=== PATIENT | male | born 1970 | race Caucasian/White ===

== ENCOUNTER → 2016-10-10 | Outpatient (CLI) | payer OTHER ==
[~2016-10-10] VITALS: Ht 172.7 cm; Wt 118.8 kg
[~2016-10-10] MED LIST: ADVIL,NUPRIN,M200 MG PO; ALEVE220 MG PO; CELECOXIB200 MG PO; ENDOCET 5-3251 EACH PO; FERROUS SULFAT325 MG PO; LISINOPRIL40 MG PO; LOVENOX40 MG/0.4 SC; OXYCONTIN10 MG PO; PERCOCET 5/31 TABLET PO; PRAVASTATIN SOD10 MG PO; PRILOSEC20 MG PO; SENNA PLUS TAB1 EACH PO; TIZANIDINE HCL4 M1 PO; VENTOLIN HFA18 GM IH
== END | disposition home or self-care (01) ==
LOC: AMB 10:56
PROC: 0DBE8ZX Excision of Large Intestine, Via Natural or Artificial Opening Endoscopic, Diagnostic (ICD-10-PCS; principal; 2016-10-10)
DX: K62.5 Hemorrhage of anus and rectum (principal); K64.8 Other hemorrhoids; A09 Infectious gastroenteritis and colitis, unspecified; K21.9 Gastro-esophageal reflux disease without esophagitis; I10 Essential (primary) hypertension; E78.00 Pure hypercholesterolemia, unspecified; Z82.49 Family history of ischemic heart disease and other diseases of the circulatory system; Z82.3 Family history of stroke
CPT/HCPCS: 88305

== ENCOUNTER 2016-12-14 17:04 | Emergency (ER) | payer OTHER ==
[~2016-12-14] VITALS: Ht 175.3 cm; Wt 120.7 kg
[2016-12-14 17:48] LABS: HEMATOCRIT 44.6 % (38.0-50.0); MCH 32.2 PG (29.0-34.0); MCHC 34.1 G/DL (30.0-36.0); MCV 94.5 FL (86-99); MEAN PLAT.VOLUME 11.2 uM^3 (9.0-12.4); PLATELET COUNT 250 K/uL (156-360); RBC DIS.WIDTH-CV 12.1 % (11.8-14.6); RBC DIS.WIDTH-SD 42.3 % (39-53); RED BLOOD COUNT 4.72 M/uL (4.00-5.50); WHITE BLOOD COUNT 11.7 K/uL (4.1-10.2)
[2016-12-14 17:58] LABS: CHLORIDE 101 mEq/L (99-109); POTASSIUM 3.9 mEq/L (3.7-5.4); SODIUM 135 mEq/L (136-147)
[2016-12-14 17:59] LABS: GLUCOSE 85 mg/dL (70-99)
[2016-12-14 18:01] LABS: ANION GAP 10 MEQ/L (2-14)
[2016-12-14 18:03] LABS: GFR ESTIMATE (CALCULATED) > 59 mL/min/
[2016-12-14 18:04] LABS: UREA NITROGEN (BUN) 35 mg/dL (9-23)
[2016-12-14 18:06] LABS: CREATINE KINASE 359 IU/L (1-294)
[2016-12-14 18:09] LABS: TROP-I INTERPRETATION NEGATIVE; TROPONIN-I < 0.01 ng/mL (0.0-0.30)
[2016-12-14 18:32] LABS: ADD MIUA? NO; BILIRUBIN NEGATIVE; BLOOD NEGATIVE; COLOR YELLOW ((YELLOW)); GLUCOSE (STRIP) NEGATIVE; KETONES NEGATIVE; LEUKOCYTES NEGATIVE; NITRITE NEGATIVE; PROTEIN (STRIP) NEGATIVE; SPECIFIC GRAVITY 1.018 (1.000-1.030); UROBILINOGEN 0.2 MG/DL (0.2-1.0)
[2016-12-14 18:43] LABS: TOTAL BILIRUBIN 0.4 mg/dL (0.0-1.0)
[2016-12-14 18:44] LABS: ALKALINE PHOSPHATASE 62 IU/L (3-129)
[2016-12-14 18:46] LABS: DIRECT BILIRUBIN 0.1 mg/dL (0.0-0.3)
[2016-12-14 20:26] VITALS: BP 110/68
[2016-12-15 12:14] LABS: LYME DISEASE SEROLOGY SCREEN NEGATIVE (NEGATIVE)
== END 2016-12-14 20:29 | disposition home or self-care (01) ==
LOC: EME 17:04
PROVIDERS: Physician Assistant
DX: M79.1 Myalgia (principal); R53.83 Other fatigue; R79.89 Other specified abnormal findings of blood chemistry; R06.09 Other forms of dyspnea; I10 Essential (primary) hypertension; K21.9 Gastro-esophageal reflux disease without esophagitis; F32.9 Major depressive disorder, single episode, unspecified; Z82.3 Family history of stroke
CPT/HCPCS: 71020; 80048; 80076; 81003; 82550; 84484; 85027; 86618; 93005; 99281; 99284

== ENCOUNTER 2017-07-30 00:27 | Emergency (ER) | payer OTHER ==
[~2017-07-30] VITALS: Ht 175.3 cm; Wt 118.0 kg
[2017-07-30 01:29] LABS: APPEARANCE CLEAR ((CLEAR)); BILIRUBIN NEGATIVE; BLOOD MODERATE; COLOR YELLOW ((YELLOW)); GLUCOSE (STRIP) NEGATIVE; KETONES NEGATIVE; LEUKOCYTES NEGATIVE; NITRITE NEGATIVE; PROTEIN (STRIP) NEGATIVE; SPECIFIC GRAVITY 1.011 (1.000-1.030); UROBILINOGEN 0.2 MG/DL (0.2-1.0)
[2017-07-30 01:34] LABS: BACTERIA NONE SEEN /HPF; EPITHELIAL CELLS NONE SEEN /HPF; MUCUS NONE SEEN /LPF; RED BLOOD CELLS 0-5 /HPF (0-5); UCUL ADDED? NO; WHITE BLOOD CELLS 0-5 /HPF (0-5)
[2017-07-30 01:38] LABS: HEMATOCRIT 37.8 % (38.0-50.0); HEMOGLOBIN 13.1 G/DL (12.5-16.6); MCH 32.8 PG (29.0-34.0); MCHC 34.7 G/DL (30.0-36.0); MCV 94.5 FL (86-99); PLATELET COUNT 189 K/uL (156-360); RBC DIS.WIDTH-CV 12.7 % (11.8-14.6); RBC DIS.WIDTH-SD 43.9 % (39-53); WHITE BLOOD COUNT 10.9 K/uL (4.1-10.2)
[2017-07-30 01:46] LABS: CHLORIDE 102 mEq/L (99-109); POTASSIUM 4.4 mEq/L (3.7-5.4); SODIUM 134 mEq/L (136-147)
[2017-07-30 01:48] LABS: GLUCOSE 112 mg/dL (70-99); TOTAL PROTEIN 7.2 g/dL (6.4-8.3)
[2017-07-30 01:50] LABS: TOTAL BILIRUBIN 0.6 mg/dL (0.0-1.0)
[2017-07-30 01:52] LABS: ALKALINE PHOSPHATASE 65 IU/L (3-129); CREATININE 1.6 mg/dL (0.6-1.3); GFR ESTIMATE (CALCULATED) 49 mL/min/ (58.99-99999)
[2017-07-30 01:53] LABS: UREA NITROGEN (BUN) 22 mg/dL (9-23)
[2017-07-30 01:54] LABS: AST (GOT) 23 IU/L (2-34)
[2017-07-30 01:55] LABS: ALT (GPT) 25 IU/L (3-49)
[2017-07-30] MEDS ORDERED: ZOFRAN ODT4 MG PO (02:45)
[2017-07-30] MEDS ORDERED: FLOMAX0.4 MG PO (02:45)
[2017-07-30] MEDS ORDERED: PERCOCET 5/31 TABLET PO (02:45)
[2017-07-30] MEDS ORDERED: COLACE100 MG PO (02:47)
[2017-07-30 02:59] VITALS: BP 122/88
== END 2017-07-30 03:00 | disposition home or self-care (01) ==
LOC: EME 00:27
PROVIDERS: Physician Assistant
DX: N13.2 Hydronephrosis with renal and ureteral calculous obstruction (principal); K76.0 Fatty (change of) liver, not elsewhere classified; K57.30 Diverticulosis of large intestine without perforation or abscess without bleeding; K44.9 Diaphragmatic hernia without obstruction or gangrene; M47.899 Other spondylosis, site unspecified; R91.1 Solitary pulmonary nodule; I10 Essential (primary) hypertension; K21.9 Gastro-esophageal reflux disease without esophagitis; F32.9 Major depressive disorder, single episode, unspecified; Z87.442 Personal history of urinary calculi; Z96.641 Presence of right artificial hip joint
CPT/HCPCS: 74176; 80053; 81003; 85027; 99281; 99284